=== PATIENT | female | born 1955 | race African-American/Black ===

== ENCOUNTER 2022-01-01 10:05 | Emergency (ER) | payer MEDICARE, OTHER ==
[~2022-01-01] VITALS: Ht 162.6 cm; Wt 81.0 kg
[2022-01-01 10:17] VITALS: BP 194/92
[2022-01-01] MEDS ORDERED: ONDANSETRON HCL 4MG/2ML INJ IV STA (14:27)
[2022-01-01] MEDS ORDERED: SODIUM CHLORIDE 0.9% 1,000 ML IV ONE (14:30)
[2022-01-01] MEDS ORDERED: HYDROCODONE/ACETAMINOPHEN 5/325MG TABLET PO STA (15:20)
[2022-01-01 16:24] LABS: BASOPHILS % 1.1 % (0.0-2.0); CHLORIDE 101 mEq/L (98-107); EOSINOPHILS % 0.7 % (0.0-5.0); HEMATOCRIT. 42.5 % (36.0-48.0); HEMOGLOBIN. 14.4 g/dL (12.0-16.0); LYMPHOCYTES % 26.9 % (20.0-50.0); MEAN CORPUSCULAR HEMOGLOBIN 29.2 pg (28.0-32.0); MEAN CORPUSCULAR VOLUME 86.3 fL (81.0-99.0); MEAN PLATELET VOLUME 10.3 fl (7.4-10.4); MONOCYTES % 5.8 % (2.0-8.0); NEUTROPHILS % 65.5 % (40.0-76.0); PLATELET 228 x1000/uL (130-400); RED BLOOD CELL COUNT 4.92 mill/uL (4.2-5.4); RED CELL DISTRIBUTION WIDTH 13.9 % (11.6-14.6)
[2022-01-01] MEDS ORDERED: ONDANSETRON HCL 4MG/2ML INJ IV NR (17:15)
[2022-01-01 17:20] LABS: CLARITY URINE CLEAR (CLEAR); COLOR URINE YELLOW (YELLOW); KETONES URINE NEGATIVE (NEGATIVE); LEUKOCYTE ESTERASE URINE TRACE (NEGATIVE); NITRITE URINE NEGATIVE (NEGATIVE); OCCULT BLOOD URINE NEGATIVE (NEGATIVE); PH URINE 6.5 (4.5-8.0); PROTEIN URINE 1+ (NEGATIVE); SPECIFIC GRAVITY URINE 1.013 (1.005-1.030)
[2022-01-01] MEDS ORDERED: IBUP-2028 MT (18:52)
[2022-01-01] MEDS ORDERED: HYDR-4001 MT ×2 (18:52→19:06)
== END 2022-01-01 19:15 | disposition home or self-care (01) ==
LOC: ER 10:05
DX: E11.65 Type 2 diabetes mellitus with hyperglycemia (principal); M54.50 Low back pain, unspecified; I10 Essential (primary) hypertension; F17.290 Nicotine dependence, other tobacco product, uncomplicated
CPT/HCPCS: 36415; 71045; 74176; 80053; 81003; 83690; 85025; 96361; 96374; 99285; 99406; J2405; J7030